=== PATIENT | male | born 1950 | race Caucasian/White ===

== ENCOUNTER → 2021-09-03 12:49 | Outpatient (CLI) | payer OTHER, SELFPAY ==
--- NOTE | 2021-09-03 12:53 | DI.RAD.S_ITS ---
PROCEDURE: XR LUMBAR SPINE MIN 4V INDICATIONS: BACK PAIN TECHNIQUE: 4 views of the lumbar spine were acquired, including bilateral oblique views. COMPARISON: [facility], MR, MR LUMBAR SPINE WITHOUT CONTRAST, 09/26/2020, 19:16. FINDINGS: Bones: 5 nonrib-bearing vertebrae are present. There is normal bony alignment. No vertebral body compression fractures. There is mild intervertebral disc space narrowing and osteophytosis. Soft tissues: Overlying bowel gas pattern is normal. No suspicious soft tissue calcifications. There are scattered aortic vascular calcifications. Oblique images: No definite pars defects. However, degenerative change at the lumbosacral junction limits evaluation. IMPRESSION: 1. Mild degenerative change. Dictated by: Ana Gtz M.D. on 09/03/2021 at 13:29 Approved by: Ana Gtz M.D. on 09/03/2021 at 13:32
== END ==
PROVIDERS: PCP Physician Assistant; Referring Provider Physical Medicine & Rehabilitation; Visit Provider Physical Medicine & Rehabilitation
DX: M47.816 Spondylosis without myelopathy or radiculopathy, lumbar region (principal); M48.062 Spinal stenosis, lumbar region with neurogenic claudication; G58.9 Mononeuropathy, unspecified; M54.9 Dorsalgia, unspecified
CPT/HCPCS: 72110; 99214

== ENCOUNTER → 2021-09-18 11:33 | Outpatient (CLI) | payer OTHER, SELFPAY ==
--- NOTE | 2021-09-18 11:36 | DI.MRI.S_ITS ---
PROCEDURE: MR THORACIC SPINE WO/W CON INDICATIONS: T11-12 LESION COMPARE WITH 09/26/20 SCAN TECHNIQUE: Noncontrast sagittal T1 spin echo and T2 fast spin echo, sagittal STIR, axial T1 and T2 fast spin echo through the thoracic spine. After the administration of contrast, axial and sagittal T1 spin echo with fat saturation through the thoracic spine. COMPARISON: [facility], MR, MR LUMBAR SPINE WITHOUT CONTRAST, 09/26/2020, 19:16. [facility], CR, XR LUMBAR SPINE MIN 4V, 09/03/2021, 12:49. [facility], MR, MR LUMBAR SPINE WITHOUT CONTRAST, 06/06/2019, 14:03. FINDINGS: Image quality: Excellent. Alignment and curvature: Accentuated thoracic kyphosis is seen. No focal AP alignment abnormality is seen. Marrow: Marrow is of normal overall signal. No acute vertebral body compression fractures. Spinal cord: At the T11-T12 level, there is abnormally increased T2 weighted signal seen, as on series 4, image 7. Visualized spinal cord is otherwise of normal signal and size, without abnormal enhancement. Paraspinous soft tissues: No paravertebral masses or abnormal enhancement. A 3.3 cm left thyroid nodule is seen. Miscellaneous: At the T11-T12 level, there is moderate loss of disc height and disc signal seen. Moderate disc bulge is seen, with a central disc protrusion. There is moderate to severe right-sided and moderate left-sided neural foraminal narrowing. Severe central canal narrowing is seen. Milder degenerative changes are seen elsewhere. 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 When comparison is made to the 09/26/2020 examination, these degenerative changes appear similar. Milder degenerative changes are seen elsewhere. No abnormal enhancement is seen. 3.3 cm left thyroid nodule incidentally noted. Please consider a dedicated follow-up thyroid ultrasound for further evaluation. Dictated by: Guevara Tovar M.D. on 09/18/2021 at 12:12 Approved by: Guevara Tovar M.D. on 09/18/2021 at 12:15
== END ==
PROVIDERS: PCP Physician Assistant; Referring Provider Physical Medicine & Rehabilitation; Visit Provider Physical Medicine & Rehabilitation
DX: M47.814 Spondylosis without myelopathy or radiculopathy, thoracic region (principal); M48.04 Spinal stenosis, thoracic region; G58.9 Mononeuropathy, unspecified; M48.062 Spinal stenosis, lumbar region with neurogenic claudication; E04.1 Nontoxic single thyroid nodule
CPT/HCPCS: 72157; A9579

== ENCOUNTER → 2021-10-13 10:59 | Outpatient (CLI) | payer OTHER, SELFPAY ==
[2021-10-13 12:26] LABS: COVID19 -Nasal RAPID Negative (Negative)
== END ==
PROVIDERS: PCP Physician Assistant; Visit Provider Physical Medicine & Rehabilitation
DX: Z20.822 Contact with and (suspected) exposure to COVID-19 (principal)
CPT/HCPCS: 87635; C9803

== ENCOUNTER 2021-10-14 08:46 | Outpatient (CLI) | payer OTHER, SELFPAY ==
[2021-10-14] VITALS (10 sets, daily range): BP systolic 97–199; BP diastolic 65–107; PULSE 67–77; RESP 10–23; TEMP 36.8; O2SAT 92–95
--- NOTE | 2021-10-14 08:49 | DI.RAD.S_ITS ---
PROCEDURE: PAIN C/T INTERLAMINAR INJECT INDICATIONS: SPINAL STENOSIS COMPARISON: [facility], CR, XR LUMBAR SPINE MIN 4V, 09/03/2021, 12:49. [facility], MR, MR THORACIC SPINE WO/W CON, 09/18/2021, 11:55. FINDINGS: Fluoroscopic spot filming was performed to verify placement of spinal needles at the T11-T12 level(s), as labeled on the films. Appropriate location(s) of the needle tip(s) was confirmed by injection of iodinated contrast. IMPRESSION: Intraprocedural examination within normal limits. Dictated by: Guevara Tovar M.D. on 10/14/2021 at 9:22 Approved by: Guevara Tovar M.D. on 10/14/2021 at 9:22
[2021-10-14] MEDS: MIDAZOLAM 2 MG/2 ML VIAL IV (09:28)
[2021-10-14] MEDS: DEXAMETHASONE 10 MG/ML VIAL 30 MG INJ (09:37)
[2021-10-14] MEDS: IOPAMIDOL 15 ML VIAL 3 ML INJ (09:37)
[2021-10-14] MEDS: BUPIVACAINE 0.25% (PF) VIAL 2 ML INJ (09:38)
--- NOTE | 2021-10-14 09:45 | PM.PROC.IR.1 ---
Date/Time/Diagnoses Date of procedure: 10/14/21 Time of procedure: 09:45 Pre-procedure diagnosis: Thoracic stenosis with HNP Post-procedure diagnosis: same Procedure Notes Procedure: Fluoroscopic guided, contrast controlled T11/12 translaminar epidural steroid injection with conscious sedation. Indications: Roman is referred by DEBORAH Prater for treatment of thoracic DDD/DJD with radiculopathy Physician: Laurent Escobedo Total Fluoroscopy time (seconds): 17 Total sedation minutes: 14 Complications: none Procedure in detail & Post-procedure care: DESCRIPTION OF PROCEDURE Fluoroscopic guided, contrast controlled T11/12 translaminar epidural steroid injection with conscious sedation. Following review of allergy review potential side effects and complications, including, but not necessarily limited to, infection, allergic reaction, local tissue breakdown, temporary as well as permanent nerve injury, stroke, paralysis and possible , the patient indicated that they understood and agreed to proceed. An informed consent document was signed by the patient, witnessed by the nurse, and placed in the patient's chart. Additionally other treatment options including modalities, medications and physical therapy were reviewed with the patient. After review of previous anaesthesic history and IV conscious sedation the patient was deemed safe to proceed with today's procedure with IV conscious sedation as ASA class II designation. Safety time-out was performed to confirm patient ID, procedure to be performed and site of procedure. IV sedation was accomplished with a combination of 3mg of Versed administered by the RN after DO order, titrated to patient comfort during the course of the procedure while the patient remained responsive to all verbal commands In the prone position, following sterile prep and drape of the thoracic region the T11/12 translaminar space was identified fluoroscopically. The skin was anesthetized via 25 gauge 1.5inch needle with 1% lidocaine solution. At this point a 22gauge epidural needle was atraumatically introduced and advanced under fluoroscopic guidance into the region of the T11/12 translaminar space depth was confirmed on lateral view. Radiographic data, including multiple fluoroscopic views of the thoracic spine, reveals spinal needle at the T11/12 translaminar space. Lateral views then showed the placement of the needle in the epidural space. Subsequent view show contrast material flowing superiorly and inferiorly in the epidural space. No vascular or intrathecal uptake is observed. At this point using loss of resistance technique with saline and the epidural space was entered. This was confirmed followed negative aspiration and injection of approximately 1.5cc of Isovue 200 showed excellent epidural flow without vascular or intrathecal uptake. At this point, 1 cc of 1% lidocaine solution was admitted as a test dose and the patient was observed for an appropriate period of time without signs or symptoms of complications, including abdominal pain, shortness of breath, bilateral upper and lower extremity weakness, nausea and vomiting, prior to steroid injection. Subsequently, 3cc or 30mg of dexamethasone was then injected without incident. The patient tolerated the procedure well without signs of complications and subsequently was transferred to the recovery room for further monitoring. The patient was then transferred to the recovery area with their observed for an appropriate time after the injection. Patient reported a VAS score of 7 prior to the procedure and post-procedure VAS of 2.
--- NOTE | 2021-10-14 11:16 | PC.NURSE ---
1005- patient was unsteady on bilateral feet. Denies dizziness or lightheaded. 1013- patient stood at chair continues to have weakness to bilateral knees, when stepping in place became unsteady on feet, sat back in chair at this time. 1030- patient stood again at chair and steady on feet, reports legs feel better just slightly weak able to take steps in place. Patient ok to d/c home.
== END 2021-10-14 10:30 | disposition home or self-care (01) ==
LOC: RAD 08:48
PROVIDERS: PCP Physician Assistant; Referring Provider Physical Medicine & Rehabilitation; Visit Provider Physical Medicine & Rehabilitation
DX: M48.04 Spinal stenosis, thoracic region (principal); M51.14 Intervertebral disc disorders with radiculopathy, thoracic region
CPT/HCPCS: 62321; 99152; J0702; J1100; J2250

== ENCOUNTER 2024-04-04 13:41 | Outpatient (CLI) | payer OTHER, SELFPAY ==
[2024-04-04] VITALS (8 sets, daily range): BP systolic 113–150; BP diastolic 68–82; PULSE 16–66; RESP 16–19; TEMP 36.7; O2SAT 93–98
--- NOTE | 2024-04-04 14:15 | DI.RAD.S_ITS ---
PROCEDURE: PAIN L INTERLAMINAR/CAUDAL INJ INDICATIONS: L4-5 translaminar VENKATESH COMPARISON: None. FINDINGS: Fluoroscopic spot filming was performed to verify placement of spinal needles at the level(s), as labeled on the films. Appropriate location(s) of the needle tip(s) was confirmed by injection of iodinated contrast. IMPRESSION: Intraoperative left interlaminar injections with a total fluoroscopic time of 9 seconds. Please see the operative report for further details. Dictated by: Santino Quevedo M.D. on 04/04/2024 at 16:33 Approved by: Santino Quevedo M.D. on 04/04/2024 at 16:34
[2024-04-04] MEDS: MIDAZOLAM 2 MG/2 ML VIAL IV (14:20)
[2024-04-04] MEDS: BUPIVACAINE 0.25% (PF) VIAL 2 ML INJ (14:26)
[2024-04-04] MEDS: BETAMETHASONE 30 MG/5 ML MDV 12 MG INJ (14:27)
[2024-04-04] MEDS: DEXAMETHASONE 10 MG/ML VIAL INJ (14:27)
[2024-04-04] MEDS: iopamidoL 15 ML VIAL 3 ML INJ (14:27)
--- NOTE | 2024-04-04 14:37 | P.PCN_ITS ---
Date/Time/Diagnoses Date of procedure: 04/04/24 Time of procedure: 14:37 Pre-procedure diagnosis: 1. HNP WITH RADICULAR FEATURES, 2. MULTILEVEL CENTRAL STENOSIS, Post-procedure diagnosis: same Procedure Notes Procedure: 1. FLUOROSCOPICALLY GUIDED CONTRAST CONTROLLED INTERLAMINAR EPIDURAL STEROID INJECTION -L4/5 Indications: Roman is referred by DEBORAH Chavez for treatment of Bilateral Foraminal Stenosis R>L LE symptoms. Physician: Laurent Escobedo Total Fluoroscopy time (seconds): 7 Total sedation minutes: 13 Complications: none Procedure in detail & Post-procedure care: FINDINGS Multilevel Central Spinal Stenosis with Nerve Root Compression DESCRIPTION OF PROCEDURE Fluoroscopically guided, contrast-controlled L4/5 translaminar epidural steroid injection. Following review of allergy and review of potential side effects and complications, including, but not necessarily limited to, infection, allergic reaction, local tissue breakdown, temporary as well as permanent nerve injury, paralysis, stroke and possible , the patient indicated that the patient understood and agreed to proceed. An informed consent document was signed by the patient, witnessed by a nurse, and placed in the patient's chart. Additionally, other treatment options including modalities, medications, and physical therapy were reviewed with the patient. After review of previous anaesthesic history and IV conscious sedation the patient was deemed safe to proceed with today?s procedure with IV conscious sedation as ASA class II designation. Safety time-out was performed to confirm patient ID, procedure to be performed and site of procedure. IV sedation was accomplished with a combination of 2mg of Versed was administered by the RN after DO order, titrated to patient comfort during the course of the procedure while the patient remained responsive to all verbal commands In the prone position, following sterile prep and drape of the lumbar region, the L4/5 translaminar space was identified fluoroscopically. The skin was anesthetized via a 25-gauge, 1.5inch needle with 1% lidocaine solution. At this point, a 22-gauge short bevel spinal needle was atraumatically introduced and advanced under fluoroscopic guidance into the region of the L4/5 translaminar space. Depth was confirmed on lateral view. Radiological data, including multiple fluoroscopic views of the lumbar spine, reveal a spinal needle at the L4/5 translaminar space. Lateral views then show placement of the needle in the epidural space. Subsequent views show contrast material flowing superiorly and inferiorly in the epidural space. No vascular or intrathecal uptake is observed. At this point, using loss of resistance technique with saline and air, the epidural space was entered. This was confirmed following negative aspiration with injection of approximately 1.5cc of Isovue 200, showing excellent epidural flow without vascular or intrathecal uptake. At this point, 1cc of 1% lidocaine solution combined with 2cc or 10mg of dexamethasone and 6mg betamethasone was injected without incident. The patient tolerated the procedure well without signs or symptoms of complications prior to transfer to the recovery area continued monitoring without incident. The patient was then transferred to the recovery area where they were observed for an appropriate period of time after the injection. The patient reported a VAS score of 7 prior to the procedure and a post- procedure VAS of 1. POST OP INSTRUCTIONS The patient was provided a Pain Log to continue to record their response to the target-specific procedure prior to follow-up visit with their referring physician. Additionally, specific post-injection care instructions and a contact number to our office were provided if concerns arise regarding possible complications associated with the procedure are suspected.
== END 2024-04-04 14:54 | disposition home or self-care (01) ==
LOC: RAD 13:42
PROVIDERS: PCP Physician Assistant Medical; Referring Provider Physical Medicine & Rehabilitation; Visit Provider Physical Medicine & Rehabilitation
DX: M51.16 Intervertebral disc disorders with radiculopathy, lumbar region (principal); M48.061 Spinal stenosis, lumbar region without neurogenic claudication
CPT/HCPCS: 62323; 99152; J0702; J1100; J2250; J3490

== ENCOUNTER 2024-07-20 13:58 | Outpatient (CLI) | payer OTHER, SELFPAY ==
[2024-07-20] VITALS (11 sets, daily range): BP systolic 125–178; BP diastolic 64–81; PULSE 64–69; RESP 14–21; TEMP 36.6; O2SAT 92–99
--- NOTE | 2024-07-20 13:59 | DI.RAD.S_ITS ---
PROCEDURE: PAIN L/S TRANSFORAM INJECT CHAVO COMPARISON: None. INDICATIONS: Bilateral L4/5 TFESI FINDINGS: Intra procedural examination demonstrating appropriate positions of the needles in the bilateral L4-5 position. IMPRESSION: Intra procedural examination demonstrating appropriate positions of the needles. Dictated by: Esequiel Ruiz M.D. on 07/21/2024 at 9:40 Approved by: Esequiel Ruiz M.D. on 07/21/2024 at 9:41
[2024-07-20] MEDS: MIDAZOLAM 2 MG/2 ML VIAL IV (14:58)
[2024-07-20] MEDS: BETAMETHASONE 30 MG/5 ML MDV 12 MG INJ (15:06)
[2024-07-20] MEDS: iopamidoL 15 ML VIAL 3 ML INJ (15:07)
[2024-07-20] MEDS: DEXAMETHASONE 10 MG/ML VIAL 20 MG INJ (15:08)
[2024-07-20] MEDS: BUPIVACAINE 0.25% (PF) VIAL 2 ML INJ (15:08)
--- NOTE | 2024-07-20 15:26 | PM.PROC.IR.1 ---
Date/Time/Diagnoses Date of procedure: 07/20/24 Time of procedure: 15:26 Pre-procedure diagnosis: 1. FORAMINAL STENOSIS WITH LE SYMPTOMS Procedure Notes Procedure: 1. FLUOROSCOPICALLY GUIDED CONTRAST CONTROLLED TRANSFORAMINAL EPIDURAL STEROID INJECTION - BILATERAL L4/5 TFESI Indications: Roman is referred by Dr. Cooley for treatment of Foraminal Stenosis with bilateral LE Symptoms Physician: Laurent Escobedo Total Fluoroscopy time (seconds): 21 Total sedation minutes: 21 Complications: none Procedure in detail & Post-procedure care: FINDINGS Foraminal Nerve Root Compression secondary to disc disease and facet hypertrophy DESCRIPTION OF PROCEDURE Following review of allergy and review of potential side effects and complications, including, but not necessarily limited to, infection, allergic reaction, local tissue breakdown, stroke, temporary or permanent nerve injury, paralysis, and possible , the patient indicated that the patient understood and agreed to proceed. An informed consent document was signed by the patient, witnessed by a nurse, and placed in the patient's chart. Additionally, other treatment options including medications, modalities, and physical therapy were reviewed with the patient. After review of previous anaesthesic history and IV conscious sedation the patient was deemed safe to proceed with today?s procedure with IV conscious sedation as ASA class II designation. Safety time-out was performed to confirm patient ID, procedure to be performed and site of procedure. IV sedation was accomplished with a combination of 2mg of Versed was administered by the RN after DO order, titrated to patient comfort during the course of the procedure while the patient remained responsive to all verbal commands In the prone position following sterile prep and drape of the lumbar region, the right L4/5 posterior neuroforamen was identified fluoroscopically. The skin was anesthetized via a 25-gauge 1.5-inch needle with 1% lidocaine solution. At this point, a 25-gauge 3.5-inch spinal needle was atraumatically introduced and advanced under fluoroscopic guidance through the posterior right L4/5 neuroforamen to approximately the anterior aspect of the canal. Depth was confirmed on lateral view. Following negative aspiration, injection of approximately 1.5cc of Isovue 200 under live fluoroscopy in the AP view confirmed excellent flow along the nerve root, into the epidural space without vascular or intrathecal uptake observed Radiological data, including multiple fluoroscopic views of the lumbosacral spine, reveal a spinal needle at the right L4/5 posterior neuroforamen. Subsequent views show flow of contrast material flowing superiorly and inferiorly along the nerve root confirming epidural flow. Subsequently, a test dose of 1.5cc of 1% lidocaine solution was administered and patient was observed for two minutes for signs or symptoms of complications, including abdominal pain, shortness of breath, bilateral upper or lower extremity weakness, nausea and vomiting, prior to steroid injection. At this point, a total of 2cc or 10mg of dexamethasone and 6mg betamethasone was injected without incident. Attention was then refocused to the left L4/5 level where the identical procedure was replicated. The procedure tolerated the procedure well without signs or symptoms of complications prior to transfer to the recovery area continued monitoring without incident. The patient was then transferred to the recovery area where they were observed for an appropriate time after the injection. The patient reported a VAS score of 8 prior to the procedure and a post-procedure VAS of 1. POST OP INSTRUCTIONS The patient was provided a Pain Log to continue to record their response to the target-specific procedure prior to follow-up visit with their referring physician. Additionally, specific post-injection care instructions and a contact number to our office were provided if concerns arise regarding possible complications associated with the procedure are suspected.
== END 2024-07-20 16:00 | disposition home or self-care (01) ==
LOC: RAD 13:58
PROVIDERS: PCP Family Medicine; Referring Provider Physical Medicine & Rehabilitation; Visit Provider Physical Medicine & Rehabilitation
DX: M48.061 Spinal stenosis, lumbar region without neurogenic claudication (principal); M51.16 Intervertebral disc disorders with radiculopathy, lumbar region; M47.26 Other spondylosis with radiculopathy, lumbar region
CPT/HCPCS: 64483; 99152; J0702; J1100; J2250; J3490

== ENCOUNTER → 2024-12-19 13:28 | Outpatient (CLI) | payer OTHER, SELFPAY ==
--- NOTE | 2024-12-19 13:29 | DI.US.S_ITS ---
PROCEDURE: US ARTERIAL DUPLEX LE BI INDICATIONS: LE Vascular Claudication TECHNIQUE: Color and pulse Doppler interrogation was performed of both lower extremity arterial systems, with image documentation. COMPARISON: None. FINDINGS: Right lower extremity: Common femoral artery: 107 cm/sec, with triphasic flow. Deep femoral artery: 84 cm/sec, with triphasic flow. Proximal superficial femoral artery: 81 cm/sec, with triphasic flow. Mid superficial femoral artery: 100 cm/sec, with triphasic flow. Distal superficial femoral artery: 83 cm/sec, with triphasic flow. Popliteal artery: 76 cm/sec, with triphasic flow. Posterior tibial artery: 80 cm/sec, with triphasic flow. Anterior tibial artery/dorsalis pedis: 50 cm/sec, with triphasic flow. Silver-scale imaging description: No significant plaque. Left lower extremity: Common femoral artery: 71 cm/sec, with triphasic flow. Deep femoral artery: 53 cm/sec, with triphasic flow. Proximal superficial femoral artery: 88 cm/sec, with triphasic flow. Mid superficial femoral artery: 64 cm/sec, with triphasic flow. Distal superficial femoral artery: 49 cm/sec, with triphasic flow. Popliteal artery: 55 cm/sec, with triphasic flow. Posterior tibial artery: 80 cm/sec, with triphasic flow. Anterior tibial artery/dorsalis pedis: 70 cm/sec, with triphasic flow. Silver-scale imaging description: No significant plaque IMPRESSION: Patent lower extremity vasculature without hemodynamically significant stenosis or significant atherosclerotic plaque. Dictated by: Nik Pereira M.D. on 12/20/2024 at 8:43 Approved by: Nik Pereira M.D. on 12/20/2024 at 8:45
== END ==
PROVIDERS: PCP Family Medicine; Referring Provider Physical Medicine & Rehabilitation; Visit Provider Physical Medicine & Rehabilitation
DX: I73.9 Peripheral vascular disease, unspecified (principal)
CPT/HCPCS: 93925